=== PATIENT | female | born 1950 | race Caucasian/White ===

== ENCOUNTER 2018-03-08 09:33 | Emergency (ER) | payer OTHER, MEDICAID ==
[~2018-03-08] VITALS: Ht 162.6 cm; Wt 82.0 kg
[2018-03-08 11:05] LABS: BASOPHILS % 0.7 % (0.0-2.0); EOSINOPHILS % 2.2 % (0.0-5.0); HEMATOCRIT. 39.4 % (36.0-48.0); HEMOGLOBIN. 13.1 g/dL (12.0-16.0); LYMPHOCYTES % 33.7 % (20.0-50.0); MEAN CORPUSCULAR HEMOGLOBIN 28.5 pg (28.0-32.0); MEAN CORPUSCULAR VOLUME 86.1 fL (81.0-99.0); MEAN PLATELET VOLUME 7.6 fl (7.4-10.4); MONOCYTES % 7.9 % (2.0-8.0); NEUTROPHILS % 55.5 % (40.0-76.0); PLATELET 346 x1000/uL (130-400); RED BLOOD CELL COUNT 4.57 mill/uL (4.2-5.4); RED CELL DISTRIBUTION WIDTH 15.5 % (11.6-14.6)
[2018-03-08 11:15] LABS: PROTHROMBIN TIME 10.4 sec (9.4-11.6)
[2018-03-08 11:16] LABS: CHLORIDE 109 mEq/L (98-107)
[2018-03-08] MEDS ORDERED: MAGNESIUM/ALUMINUM HYDROXIDE/SIMETHICONE 30ML UDC PO STA (12:12)
[2018-03-08] MEDS ORDERED: KETOROLAC 30MG/ML VIAL IV STA (12:12)
[2018-03-08] MEDS ORDERED: FAMOTIDINE 20MG/2ML VIAL IV STA (12:12)
[2018-03-08] MEDS ORDERED: SODIUM CHLORIDE 0.9% 1,000 ML IV ONE (12:15)
[2018-03-08 12:54] VITALS: BP 121/58
== END 2018-03-08 13:17 | disposition home or self-care (01) ==
LOC: ER 10:40
DX: R07.89 Other chest pain (principal); E78.00 Pure hypercholesterolemia, unspecified; K59.00 Constipation, unspecified
CPT/HCPCS: 36415; 71045; 80053; 83880; 84484; 85025; 85610; 93005; 96361; 96374; 96375; 99285; J1885; J3490; J7030